=== PATIENT | male | born 1975 | race Two or more races ===

== ENCOUNTER → 2022-09-14 13:26 | Outpatient (BNV) | payer MEDICAID, SELFPAY ==
--- NOTE | 2022-09-15 07:44 | UCCONSULT_ITS ---
RE: FLORINA BUSCH : 1975 DATE OF CONSULTATION: 09/14/2022 CHIEF COMPLAINT: 1. Urinary retention. 2. Neurogenic bladder. 3. 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 4. Urosepsis. 5. Abscess in the lumbar paraspinal musculature, status post CT drainage. 6. Diabetes mellitus. HISTORY OF PRESENT ILLNESS: This is a 47-year-old gentleman. He is admitted in the hospital because of the above problem. The patient denies any urinary problem before. He went into urinary retention, had placement of catheter. Residual urine was about 800 mL. A trial of voiding was given and it failed. He had placement of catheter. Past medical history, family history, review of systems, personal history, please refer to patient history form dated, 09/14/2022, it is in HPI, in EMR. PHYSICAL EXAMINATION: GENERAL: The patient is [place] speaking. I had to communicate with him through my RN Cristin who translated it for me. Condition is satisfactory. Orientation x3. He is not in acute distress. HEENT: Moist mucus membrane. Normocephalic, atraumatic. SKIN: Warm and dry. NECK: Supple. Trachea is central. Thyroid is not enlarged. EXTREMITIES: Revealed no edema, cyanosis or clubbing. CHEST: Symmetrical. HEART: Regular rate and rhythm. ABDOMEN: Soft, no masses. Liver, spleen, kidney not palpable. No CVA tenderness. GENITALIA: He has indwelling Claros catheter. VARIOUS LABS: WBC is 8.2, hemoglobin is 12.2, serum creatinine 0.7, GFR is over 60. IMPRESSION: 1. 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 2. Urosepsis. 3. Benign prostatic hypertrophy with obstruction. RECOMMENDATIONS: 1. Continue with IV antibiotics. 2. He had ultrasound of the kidney done on 08/27/2022, it was reviewed by me. There was no hydronephrosis. He had bilateral renal scar formation. 3. The patient started on tamsulosin 0.4 mg p.o. daily, finasteride 5 mg p.o. daily. Trial of voiding in 3 days. 4. Followup appointment in Urology office. This patient is going to need urodynamic studies. DT: 13:39:20 TT: 19:32:00 Ref: [id number] - TID: [id number]
== END ==
PROVIDERS: Visit Provider Urology